=== PATIENT | female | born 1985 | race Caucasian/White ===

== ENCOUNTER 2017-12-16 18:24 | Emergency (ER) | payer OTHER, SELFPAY ==
[2017-12-16 18:26] VITALS: BP 140/91; PULSE 91; RESP 16; TEMP 36.8; O2SAT 100; BMI 33.3
[2017-12-16 18:34] VITALS: PULSE 84; RESP 16; O2SAT 99
--- NOTE | 2017-12-16 18:42 | CT_ITS ---
STUDY: CT BRAIN WITHOUT CONTRAST REASON FOR EXAM: Female, 32 years old. Trauma RADIATION DOSAGE (If Supplied By Facility): CTDIvol = ( 44.99 ) mGy, DLP = ( 829.85 ) mGycm TECHNIQUE: Transaxial CT imaging of the brain was performed without administration of intravenous contrast material. Individualized dose optimization techniques were used for this CT. COMPARISON: None. FINDINGS: There is soft tissue injury with subcutaneous gas of the posterior occipital region. There is a nondisplaced midline occipital bone fracture extending to the foramen magnum. There is a parenchymal hemorrhage of the medial left frontal lobe measuring 1.9 x 1.1 x 1.6 cm. Normal white matter tracts of the cerebral hemispheres. Normal basal ganglia and thalami. Normal brainstem. Normal cerebellum. There are no findings of an acute ischemic infarction. Normal visualized paranasal sinuses. CT/Brain/Head without Contrast IMPRESSION: 1. Parenchymal hemorrhage of the medial left frontal lobe measuring 1.9 x 1.1 x 1.6 cm. 2. There is a nondisplaced midline occipital bone fracture extending to the foramen magnum. 3. There is soft tissue injury with subcutaneous gas of the posterior occipital region. Electronically Signed: Giuseppe Curry MD at 19:28 EDT , Service support ,
--- NOTE | 2017-12-16 18:42 | RAD_ITS ---
STUDY: X-RAY CHEST REASON FOR EXAM: Female, 32 years old. Trauma TECHNIQUE: AP COMPARISON: None. FINDINGS: Diminished inspiratory effort is seen. There is bilateral perihilar interstitial thickening. There is no demonstrated pleural abnormality. Heart is upper normal size. Normal mediastinum and luís. Normal visualized pulmonary arteries. Normal visualized aortic arch and descending thoracic aorta. Normal visualized thoracic spine. Normal visualized ribs, clavicles, and shoulders. There is no demonstrated abnormality of the visualized soft tissue structures of the upper abdomen. RAD/Chest 1 View IMPRESSION: Mild nonspecific bilateral perihilar interstitial thickening. Electronically Signed: Demetri Reynolds MD at 20:00 EDT , Service support ,
--- NOTE | 2017-12-16 18:42 | CT_ITS ---
STUDY: CT CERVICAL SPINE WITHOUT CONTRAST REASON FOR EXAM: Female, 32 years old. Trauma RADIATION DOSAGE (If Supplied By Facility): CTDIvol = ( 22.43 ) mGy, DLP = ( 469.18 ) mGycm TECHNIQUE: High resolution transaxial imaging was performed without contrast material. Sagittal and coronal images were reconstructed. Individualized dose optimization techniques were used for this CT. COMPARISON: None FINDINGS: There is again demonstrated a nondisplaced hairline fracture of the mid occipital bone. The fracture line extends to the foramen magnum. Normal craniovertebral junction. Normal anterior atlantoaxial articulation. Normal odontoid process. Normal cervical lordosis. Normal vertebral bodies and posterior osseous elements. C2-3: Normal endplates. Normal disc height and morphology. Normal central canal and intervertebral neuroforamina. C3-4: Normal endplates. Normal disc height and morphology. Normal central canal and intervertebral neuroforamina. C4-5: Normal endplates. Normal disc height and morphology. Normal central canal and intervertebral neuroforamina. C5-6: Normal endplates. Normal disc height and morphology. Normal central canal and intervertebral neuroforamina. C6-7: Normal endplates. Normal disc height and morphology. Normal central canal and intervertebral neuroforamina. C7-T1: Normal endplates. Normal disc height and morphology. Normal central canal and intervertebral neuroforamina. Normal visualized soft tissue structures. CT/Spine Cervical without Contras IMPRESSION: The cervical spine appears within normal limits. There is again demonstrated a nondisplaced hairline fracture of the mid occipital bone extending to the foramen magnum. Electronically Signed: Giuseppe Curry MD at 19:36 EDT , Service support ,
[2017-12-16] MEDS: Ondansetron 4 MG/2 ML Vial IM (18:50)
[2017-12-16] MEDS: morphine 8 MG/ML Syringe 6 MG IM (18:50)
--- NOTE | 2017-12-16 19:15 | RAD_ITS ---
STUDY: X-RAY - RIGHT FEMUR REASON FOR STUDY: Female, 32 years old. Trauma TECHNIQUE: Radiological exam, femur, minimum 2 views COMPARISON: None. FINDINGS: Normal visualized femur. Normal visualized soft tissue structure. RAD/Femur Min 2 Views IMPRESSION: Normal x-ray examination of the femur. Electronically Signed: Demetri Reynolds MD at 20:06 EDT , Service support ,
--- NOTE | 2017-12-16 19:42 | ED.DCSUM_ITS ---
- ER Visit Summary Date of Service: 12/16/17 Chief Complaint: Head injury so we History of Present Illness: The patient is a 32 F fell from the second floor and hit the back of her head. Questionable if she had loss of consciousness at the very least she became dizzy. She has no vision changes, no nausea or vomiting. She is complaining of right femur tenderness and left chest wall pain. Physical Examination: Patient has a laceration posterior scalp region, no C-spine tenderness. No LS spine or thoracic spine tenderness. She has left chest wall tenderness. She has clear lungs bilaterally abdomen is soft and nontender she has right femur pain. Neurovascularly is intact and moves all her extremities. Emergency Department Course and Treatment: [Chin is found to have intracranial hemorrhage. She has a small frontal intraparenchymal bleed. I discussed with Ernestine askew for transfer. Since this is her parenchymal there is no high likelihood of seizure therefore no antiseizure medications were given. She continues to remain stable. She received tetanus update morphine and Zofran and continues to do well. Treatment Plan: [] Disposition: [] Transfer in serious condition Impression: Intraparenchymal hemorrhage This note was generated with Inner[employer] dictation software. It may contain incorrect words, spelling, and punctuation that were not noted in review of the chart prior to signing ED Disposition - Plan for ED Patient: Chief Complaint: Fall Referrals: Sanjay Winslow MD [Primary Care Provider] -
[2017-12-16 19:45] VITALS: BP 151/92; PULSE 85; RESP 16; O2SAT 99
[2017-12-16] MEDS: Diphth,Pertuss(Acell),Tet Vac 0.5 ML Vial IM (19:59)
[2017-12-16 20:00] VITALS: BP 148/74; PULSE 78; RESP 16; O2SAT 97
[2017-12-16 21:00] VITALS: BP 138/72; PULSE 78; RESP 17; O2SAT 98
== END 2017-12-16 21:07 | disposition short-term general hospital (02) ==
PROVIDERS: Emergency Provider Emergency Medicine; Family Provider Family Medicine; PCP Family Medicine
DX: S02.11HA Other fracture of occiput, left side, initial encounter for closed fracture (principal); S06.359A Traumatic hemorrhage of left cerebrum with loss of consciousness of unspecified duration, initial encounter; W17.89XA Other fall from one level to another, initial encounter; Y93.9 Activity, unspecified; Y92.9 Unspecified place or not applicable
CPT/HCPCS: 51702; 70450; 71045; 72125; 73552; 90715; 96361; 96372; 96374; 96375; 99285; J7030; A4216; J2405

== ENCOUNTER 2021-02-22 07:52 | Emergency (ER) | payer OTHER, SELFPAY ==
[2021-02-22 07:53] VITALS: BP 132/85; PULSE 82; RESP 18; TEMP 36.9; O2SAT 96; BMI 35.4
--- NOTE | 2021-02-22 07:57 | NURSING ---
NO OLD EKGS
[2021-02-22 07:59] VITALS: BP 135/85; PULSE 78; RESP 18; TEMP 36.9; O2SAT 99
--- NOTE | 2021-02-22 08:08 | EKG12_ITS ---
Test Reason : SYNCOPE Blood Pressure : / mmHG Vent. Rate : 075 BPM Atrial Rate : 075 BPM P-R Int : 168 ms QRS Dur : 092 ms QT Int : 398 ms P-R-T Axes : 059 056 058 degrees QTc Int : 444 ms Normal sinus rhythm Normal ECG Confirmed by TAQUERIA JASMINE, LENA ([id number]), website/blog editor JAS KEATING ([id number]) on 02/28/2021 6:29:53 AM Referred By: DEVYN Confirmed By:LENA MENG MD
--- NOTE | 2021-02-22 08:10 | EX.ED.DYSGE1 ---
HPI History of Present Illness Chief Complaint: Syncope Informant: patient Narrative Narrative: Patient is a 35-year-old female presenting via EMS for near syncope. Patient states she is been sick for the last few days. She has had cough, posttussive vomiting and fever. She had decreased oral intake. She notes last night she a little lightheaded but that improved when she sat down. This morning she was trying to make breakfast when she felt lightheaded. She sat down and felt better but then when she tried to get up again she felt more symptomatic. She states everything looked black however she did not lose consciousness. She did not fall or hit her head. She took ibuprofen yesterday but none today. She does not believe she is . Her was sick about 10 days ago but got better after 2 days. She and her have not been tested for Covid. No other complaints or concerns at this time. She denies any swelling of her legs and is not on any estrogen. Denies any history of DVT or PE. Patient is reporting her stress in her life as her recently became local computer applications engineer. [facility] Medical History No known health problems Home Medications NK 12/16/17 [History Last Taken Unknown] Allergy/AdvReac Type Severity Reaction Status Date / Time No Known Allergies Allergy Verified 02/22/21 07:57 Social History Smoking Status: Never smoker ROS ROS ED Constitutional Constitutional ED: Reports chills and fever(s) Eyes Eyes: Reports change in vision and other Details: Tunnel vision ENT ENT ED: Denies ear pain, rhinorrhea or sore throat Cardiovascular Cardiovascular: Denies chest pain Respiratory/Chest Respiratory/Chest: Reports cough and dyspnea; Denies sputum Gastrointestinal Gastrointestinal: Reports vomiting; Denies abdominal pain, diarrhea or nausea Genitourinary Genitourinary ED: Denies dysuria or hematuria Musculoskeletal Musculoskeletal: Reports myalgias Integumentary Denies rash Neurologic Neurologic: Denies headache(s) or weakness Psychiatric Psychiatric: Denies anxiety or depression EXAM Physical Exam Const Vital Signs: 02/22/21 07:53 02/22/21 07:59 02/22/21 09:31 Temperature 98.5 F 98.5 F Temperature Source Oral Oral Pulse Rate 82 78 70 Respiratory Rate 18 18 16 Respiratory Effort Normal Respiratory Pattern Normal Blood Pressure 132/85 H 135/85 H 127/80 H Blood Pressure Mean 100 101 95 Pulse Ox 96 99 96 Oxygen Delivery Method Room Air Room Air Room Air Positive well nourished, well developed and obese General Appearance ED: well developed Nutritional Appearance: obese HEENT Reports TM's clear and moist mucous membranes Tympanic Membrane ED: Yes TM's clear Eyes PERRL and EOMs intact bilaterally Neck no lymphadenopathy and supple Cardio regular rate, regular rhythm and no murmurs GI normal to inspection, nondistended, normoactive bowel sounds and non-tender Back/Spine no CVA tenderness Extremity normal to inspection Extremity Narrative: 2+ bilateral DP pulses General Extremety ED: Negative for edema or tenderness General Extremity: Negative for edema Neuro oriented x3 Sensorium / Orientation: alert Motor Exam: strength 5/5 throughout; Negative for general weakness Psych mental status grossly normal Skin no rashes or lesions noted and no wounds MDM MDM MDM Narrative Medical decision making narrative: Patient is evaluated for lightheadedness. She is also been having cold-like symptoms for the past 4 to 5 days. She appears nontoxic and is hemodynamically stable. She is PE RC negative and I do not think this is a PE. Her symptoms sound more vasovagal in nature. Work-up is largely negative and EKG is normal. No signs of myocarditis or pericarditis. Patient does test positive for Covid. This is likely the cause of her presentation. Her white blood cell count is mildly neutropenic and chest x-ray is consistent with Covid pneumonia. Do not take antibiotics indicated at this time. Patient will be discharged home in with referral for monoclonal antibody infusion as she does meet criteria with BMI. Counseled on quarantine precautions as well as return precautions. She is ambulate in the emergency room and does not have any hypoxia. Lab Data Attestation: I reviewed the patient's lab results. Labs: Laboratory Results - last 24 hr 02/22/21 02/22/21 02/22/21 08:30 08:30 09:25 WBC 3.7 L RBC 4.76 Hgb 13.7 Hct 39.9 MCV 83.8 MCH 28.8 MCHC 34.3 RDW Std Deviation 40.8 RDW Coeff of Ranjith 13.2 Plt Count 84 L MPV 10.1 Immature Gran % (Auto) 0.500 Neut % (Auto) 68.1 Lymph % (Auto) 21.5 Gulf % (Auto) 9.1 Eos % (Auto) 0.5 Baso % (Auto) 0.3 Absolute Neuts (auto) 2.5 Absolute Lymphs (auto) 0.80 L Nucleated RBC % 0 Differential Comment SCANNED Platelet Estimate SLT DEC Sodium 141 Potassium 3.5 Chloride 108 H Carbon Dioxide 28.0 Anion Gap 5 BUN 12 Creatinine 0.73 Estim Creat Clear Calc 98.78 Est GFR (MDRD) Af Amer 116 Est GFR (MDRD) Non-Af 95 BUN/Creatinine Ratio 16.5 Glucose 104 Calcium 7.8 L Total Bilirubin 0.50 AST 37 ALT 35 Alkaline Phosphatase 70 Troponin I High Sens 7 Total Protein 7.2 Albumin 3.1 L Globulin 4.1 Albumin/Globulin Ratio 0.8 L Urine Color Yellow Urine Clarity Sl. Cloudy Urine pH 7.0 Ur Specific [place] 1.005 Urine Protein 15 H Urine Glucose (UA) Normal Urine Ketones Negative Urine Occult Blood Negative Urine Nitrite Negative Urine Bilirubin Negative Urine Urobilinogen Normal Ur Leukocyte Esterase Negative Urine RBC 0 SEEN Urine WBC 0-5 SEEN Ur Squamous Epith Cells 0-5 SEEN Urine Bacteria 1+ Urine Mucus 0 SEEN Urine Test 02/22/21 09:25 WBC RBC Hgb Hct MCV MCH MCHC RDW Std Deviation RDW Coeff of Ranjith Plt Count MPV Immature Gran % (Auto) Neut % (Auto) Lymph % (Auto) Gulf % (Auto) Eos % (Auto) Baso % (Auto) Absolute Neuts (auto) Absolute Lymphs (auto) Nucleated RBC % Differential Comment Platelet Estimate Sodium Potassium Chloride Carbon Dioxide Anion Gap BUN Creatinine Estim Creat Clear Calc Est GFR (MDRD) Af Amer Est GFR (MDRD) Non-Af BUN/Creatinine Ratio Glucose Calcium Total Bilirubin AST ALT Alkaline Phosphatase Troponin I High Sens Total Protein Albumin Globulin Albumin/Globulin Ratio Urine Color Urine Clarity Urine pH Ur Specific [place] Urine Protein Urine Glucose (UA) Urine Ketones Urine Occult Blood Urine Nitrite Urine Bilirubin Urine Urobilinogen Ur Leukocyte Esterase Urine RBC Urine WBC Ur Squamous Epith Cells Urine Bacteria Urine Mucus Urine Test Negative Radiography Chest X-Ray - ED: 1 View, Read by ED Physician, Read by Radiologist and Left Infiltrate Diagnostic Testing: Clinical Impression(s) from Imaging Studies Chest X-Ray 02/22/21 08:45 IMPRESSION: Patchy left lower lobe infiltrate. Electronically Signed: Donato Dumont MD at 9:01 EDT , Service support , Rhythm Strip Rhythm Strip: Sinus Rhythm Rate: 75 Ectopy: None EKG Initial EKG: Attestation: I personally reviewed and interpreted this EKG as follows: Interpretation: Sinus Rhythm Comments: Normal sinus rhythm at a rate of 75 Normal axis Normal intervals Normal ST segments Discharge Plan Triage Chief Complaint: Syncope ED Provider: Stephany Figueroa Dx/Rx/DC Orders Clinical Impression: Pneumonia due to 2019-nCoV, Light-headedness Instructions: Coronavirus Disease 2019 (COVID-19): Caring for Yourself or Others Prescriptions: No Action NK RF: 0 Other Ambulatory Orders: COVID Outpatient Monoclonal Antibody Referral (Routine) Timeframe: 1 Day Facility: [facility] - Location: [facility] Ordered By: Dr. Stephany Figueroa Primary Care Provider: Vincenzo Mchugh Referrals: Vincenzo Mchugh MD [Primary Care Provider] - Activity Restrictions/Additional Instructions: Alternate Tylenol and ibuprofen as well as [id number] cold and flu medicine to help with your symptoms. Disposition Disposition: Home, Self Care
[2021-02-22] MEDS: 0.9% Normal Saline 1,000 ML 1000 ML IV (08:32)
[2021-02-22 08:43] LABS: Absolute Neutrophil Count 2.5 X10^3/uL (2.0-7.7); Basophil# 0.01 X10^3/uL; Basophil% 0.3 % (0-1); Eosinophil# 0.02 X10^3/uL; Eosinophils% 0.5 % (0-5); Hematocrit 39.9 % (37-47); Hemoglobin 13.7 g/dL (12.0-15.0); Lymphocyte % 21.5 % (19-41); Mean Corp Hgb Conc 34.3 g/dL (32-36); Mean Corpuscular Hgb 28.8 pg (27.0-32.0); Mean Corpuscular Volume 83.8 fL (81-99); Mean Platelet Vol. 10.1 fl (6.2-12.0); Monocyte# 0.34 X10^3/uL; Monocyte% 9.1 % (0-10); NRBC Flagged by Analyzer 0 % (0-5); Neutrophil # 2.53 X10^3/uL (2.7-7.7); Neutrophil % 68.1 % (47-70); POSITIVE COUNT YES; Platelet Count 84 K/mm3 (150-450); RBC Distribution Width CV 13.2 % (11.6-14.6); RBC Distribution Width SD 40.8 fl (35.1-43.9); Red Blood Count 4.76 M/mm3 (4.2-5.4); White Blood Count 3.7 K/mm3 (4.4-11.0)
--- NOTE | 2021-02-22 08:45 | RAD_ITS ---
STUDY: X-RAY CHEST REASON FOR EXAM: Female, 35 years old. Cough TECHNIQUE: Single AP portable view of the chest. COMPARISON: Comparison is made with prior examination dated 12/16/2018. FINDINGS: EKG electrodes are seen. There is a patchy left lower lobe infiltrate. There is no demonstrated pleural abnormality. Normal size heart. Normal mediastinum and luís. Normal visualized pulmonary arteries. Normal visualized aortic arch and descending thoracic aorta. Normal visualized thoracic spine. Normal visualized ribs, clavicles, and shoulders. There is no demonstrated abnormality of the visualized soft tissue structures of the upper abdomen. RAD/Chest 1 View (Portable) IMPRESSION: Patchy left lower lobe infiltrate. Electronically Signed: Donato Dumont MD at 9:01 EDT , Service support ,
[2021-02-22 08:58] LABS: Differential Indicated SCAN CRITERIA MET
[2021-02-22 09:00] LABS: ALB/GLOB Ratio 0.8 RATIO (0.9-2.4); AST(SGOT) 37 U/L (15-37); Alanine Aminotransfer ALT/SGPT 35 U/L (13-56); Albumin, Serum 3.1 g/dL (3.2-5.0); Alkaline Phosphatase 70 U/L (45-117); Anion Gap 5 (5-15); BUN 12 mg/dL (7-18); BUN/Creat Ratio 16.5 RATIO (10-20); Calcium,Total 7.8 mg/dL (8.5-10.1); Chloride 108 mmol/L (98-107); Creatinine, Serum 0.73 mg/dL (0.55-1.02); EST Glomerular Filtration Rate 95 mL/min (>60); Est Glom Filt Rate - Afr Amer 116 mL/min (>60); Estimated Creatinine Clearance 98.78 ml/min; Globulin 4.1 g/dL (2.2-4.2); Glucose 104 mg/dL (74-106); Potassium 3.5 mmol/L (3.5-5.1); Protein, Total 7.2 g/dL (6.4-8.2); Sodium Level 141 mmol/L (136-145); Troponin-I HS 7 pg/mL (3.0-54.0)
[2021-02-22 09:31] VITALS: BP 127/80; PULSE 70; RESP 16; O2SAT 96
[2021-02-22 09:32] LABS: Mucous, Urine 0 SEEN /hpf (<or=2+); Red Blood Cells-Urine 0 SEEN /hpf (0-5)
[2021-02-22 09:37] LABS: Color, Urine Yellow (Yellow); Glucose, Dipstick Normal (Normal); Ketone-Dipstick Negative (Negative); Leukocyte Esterase-Dipstick Negative /ul (Negative); Nitrite-Dipstick Negative (Negative); Occult Blood-Urine Negative /ul (Negative); Protein-Dipstick 15 mg/dl (Negative); Specific Gravity, Urine 1.005 (1.002-1.030); Urine Bilirubin Dipstick Negative (Negative); Urine Clarity Sl. Cloudy (Clear); Urine Urobilinogen Normal (Normal)
[2021-02-22 09:47] VITALS: O2SAT 98
[2021-02-22 09:48] LABS: Bacteria 1+ /hpf (None Seen); Squamous Epithelial Cells - UA 0-5 SEEN /hpf (5-10); White Blood Cells 0-5 SEEN /hpf (0-5)
[2021-02-22 09:57] LABS: Differential Comment SCANNED; Platelet Estimate SLT DEC (ADEQ)
[2021-02-22 10:09] LABS: Internal QC Validated? YES +Cl - CLEAR BKGD; Pregnancy, Urine Negative Negative
[2021-02-22 10:21] VITALS: BP 133/81; PULSE 72; RESP 20; TEMP 37.1; O2SAT 98
== END 2021-02-22 10:31 | disposition home or self-care (01) ==
PROVIDERS: Emergency Provider Emergency Medicine; PCP Family Medicine
DX: U07.1 COVID-19 (principal); J12.82 Pneumonia due to coronavirus disease 2019; E66.9 Obesity, unspecified; Z68.35 Body mass index [BMI] 35.0-35.9, adult
CPT/HCPCS: 36415; 71045; 80053; 81001; 81025; 84484; 85025; 87426; 93005; 96360; 99285; J7030; A4216